=== PATIENT | male | born 1975 | race Caucasian/White ===

== ENCOUNTER 2018-11-25 11:27 | Emergency (ER) | payer BC ==
--- NOTE | 2018-11-25 11:29 | PDOC ---
History of Present Illness - General Chief Complaint: Injury Stated Complaint: RIGHT ANKLE INJURY Time Seen by Provider: 11/25/18 11:28 History Source: Patient Exam Limitations: No Limitations - History of Present Illness Initial Comments: HPI: 43 y/o female presenting to [facility] complaining of pain and swelling to right ankle. Symptoms started approx. 2 hours ago when the pt fell playing basketball with friends. Pt attempted to change direction and twisted the ankle while falling to the ground. He was able to walk on the extremity after the incident. Became concerned when the pain and swelling continued to increase. Did not take any medication for symptoms prior to arrival. Medical Hx: - Pt denies past medical history. Denies prescription medications. Surgical Hx: - Pt denies past surgical history. Past History - Past Medical History Allergies/Adverse Reactions: Allergies Allergy/AdvReac Type Severity Reaction Status Date / Time No Known Allergies Allergy Verified 11/25/18 11:28 Home Medications: Ambulatory Orders Naproxen [Naprosyn -] 500 mg PO BID PRN 7 Days #14 tablet 11/25/18 Review of Systems - Review of Systems Able to Perform ROS?: Yes Comments:: In addition to that documented in the HPI above, the additional ROS was obtained : Constitutional: Denies fevers or chills or syncope ENMT: Denies sore throat CV: Denies chest pain Resp: Denies SOB GI: Denies vomiting or diarrhea Heme: Denies bleeding. *Physical Exam - Physical Exam Comments: Constitutional: Well-developed, well-nourished male in no acute distress but obvious mild discomfort. Found semi-fowlers on hospital bed. Initially observed walking into the department assisted with walking cane. Alert and oriented x4. Answered all questions appropriately and completely. Speech was non-labored, non -pressured. Head: Normocephalic. No obvious external signs of trauma. Eyes: Sclerae white. EARS: Hearing grossly intact. NOSE: No nasal discharge. Neck: Supple, trachea is midline. Cardiovascular: Regular rate and regular rhythm. No murmur, rubs, clicks, or gallops. Peripheral pulses: Radial pulses full. Respiratory: Breathing unlabored. Equal chest rise and fall. Clear to auscultation bilaterally. No stridor, no wheezing, no rhonchi. Neuro: Alert and oriented. Moving all four extremities spontaneously. Skin/MSK: Medial and lateral swelling to R ankle when compared to L ankle. Point tenderness to just superior to lateral malleolus. Dorsiflexion and plantarflexion 5/5. 2+ pedial pulse. Right foot warm and well perfused. No skin breaks. Globally, skin is warm, dry, and intact. Psych: Affect: appropriate. Mood: normal. Medical Decision Making - Medical Decision Making *Reviewed vital signs, nursing notes, and prior visit documentation (if available). 43 y/o male presenting with swelling and point tenderness just superior to right lateral malleolus after mechanical fall. Suspect MSK injury. Will obtain ankle and foot plain films to further evaluate. Ordered Motrin for symptom relief. Plain film revealed distal fibular fracture with intact mortise. Toro wrap applied to ankle. Post splinting neurovascular exam of right foot unchanged from initial. Provided crutches. Sent prescription for Naproxen. Provided ortho referral. Discussed imaging results with pt. Answered all questions. Provided return precautions. Pt expressed verbal understanding and agreement with plan to discharge home with outpatient follow up. *DC/Admit/Observation/Transfer Diagnosis at time of Disposition: Fracture of distal end of fibula Qualifiers: Encounter type: initial encounter Fracture type: closed Fracture morphology: unspecified fracture morphology Laterality: right Qualified Code(s): S82.831A - Other fracture of upper and lower end of right fibula, initial encounter for closed fracture - Discharge Dispostion Disposition: HOME Condition at time of disposition: Good Decision to Admit order: No - Prescriptions Prescriptions: Naproxen [Naprosyn -] 500 mg PO BID PRN 7 Days #14 tablet PRN Reason: Pain - Referrals Referrals: Maximilian Lemons DO [Staff Physician] - - Patient Instructions Printed Discharge Instructions: DI for Ankle Fracture Additional Instructions: You were seen today for pain and swelling to your right ankle after you fell playing basketball. The x-ray shows a fracture to your fibula. This does not require a cast at this time. You will need to follow up with an orthopedic doctor within the next 3-5 days for additional evaluation. I have placed a referral for you to see Dr. Lemons. You will need to call to make an appointment. The number is included in this packet. I have sent a prescription for Naproxen to [facility]. Take this up two times a day as needed for pain. Do not take more than the recommended dose. Do not take any other NSAIDS with this medication. You can also take Tylenol if needed for additional pain relief. Go to the nearest emergency department if your condition worsens or you feel like you need additional emergency evaluation. Print Language: BELARUSIAN - Post Discharge Activity
[2018-11-25] MEDS ORDERED: IBUPROFEN 400 MG TABLET (FP) PO ONE ×2 (11:38→11:40)
--- NOTE | 2018-11-25 11:43 | PDOC ---
Attending Attestation - Resident Resident Name: Dev Mcclain - ED Attending Attestation I have performed the following: I have examined & evaluated the patient, The case was reviewed & discussed with the resident, I agree w/resident's findings & plan - HPI HPI: 11/25/18 11:40 43 y/o male playing basketball this morning, rolled right ankle. Able to bear weight but has increasing swelling and pain. Iced the ankle. No other injury at this time. - Physicial Exam PE: 11/25/18 11:40 VS stable HEENT: unremarkable Heart: RRR without murmur EXT: right ankle tender to medial and lateral malleolus, with decreased ROM, pulses 2+/4 b/l in LE, no calf tenderness, mild tautness, no compartment syndrome noted Neuro: grossly intact, no focal deficits noted - Medical Decision Making 11/25/18 12:36 right ankle: distal fibula fracture ? distal tibia fracture, STS, heel spur Toro wrap, crutches non weight bearing Follow up with Orthopedics Ice, Naproxen, elevate, rest If worsen return to ER Agree with Resident Dr. Mcclain assessment and plan Final Dx: right distal fibula fracture
[2018-11-25 11:52] VITALS: BP 120/88; PULSE 95; TEMP 97.9; BMI 28.5
== END 2018-11-25 12:45 | disposition home or self-care (01) ==
LOC: FER 11:27
DX: S82.831A Other fracture of upper and lower end of right fibula, initial encounter for closed fracture (principal); W18.39XA Other fall on same level, initial encounter; Y93.67 Activity, basketball; Y92.89 Other specified places as the place of occurrence of the external cause
CPT/HCPCS: 73610-TC-RT-FY; 73630-TC-RT-FY; 99282-25